=== PATIENT | female | born 1965 | race Caucasian/White ===

== ENCOUNTER → 2021-04-20 | Outpatient (CLI) | payer OTHER ==
[~2021-04-20] MED LIST: CRESTOR 10 MG T10 MG PO; HYDROCHLOROTHIA25 MG PO; NORVASC5 MG PO; ZYRTEC10 M3 PO
[2021-04-20 08:43] LABS: HEMOGLOBIN 14.5 gm/dl (12.3-15.3); RED BLOOD COUNT 4.59 M/UL (4.00-5.10); WHITE BLOOD COUNT 4.3 K/UL (4.5-11.0)
[2021-04-20 09:10] LABS: BUN/CREATININE RATIO 27 (0-10)
== END ==
LOC: OPSV2 07:55
PROVIDERS: Obstetrics & Gynecology
DX: Z01.812 Encounter for preprocedural laboratory examination (principal); N93.0 Postcoital and contact bleeding
CPT/HCPCS: 36415; 80053; 81001; 85025

== ENCOUNTER → 2021-04-28 | Day surgery (SDC) | payer OTHER | END | disposition home or self-care (01) | LOC: OR 05:31 | DX: N95.0 Postmenopausal bleeding (principal); N88.2 Stricture and stenosis of cervix uteri; N93.0 Postcoital and contact bleeding; I10 Essential (primary) hypertension; E78.5 Hyperlipidemia, unspecified; M85.80 Other specified disorders of bone density and structure, unspecified site; Z98.51 Tubal ligation status; Z79.899 Other long term (current) drug therapy | CPT/HCPCS: 71045; 93005; J1100; J1885; J2001; J2250; J2405; J2704; J2795; J3010; J7120 ==